=== PATIENT | female | born 2000 | race Caucasian/White ===

== ENCOUNTER 2024-02-04 12:03 | Emergency (ER) | payer MEDICAID ==
[~2024-02-04] VITALS: Ht 167.6 cm; Wt 82.0 kg
[2024-02-04 12:07] VITALS: O2SAT 100
[2024-02-04] MEDS ORDERED: P20 PO (12:47)
[2024-02-04] MEDS ORDERED: POLY15DR31 LEFTEYE (12:47)
[2024-02-04] MEDS: PREDNISONE 20MG TABLET PO ONE (13:01)
[2024-02-04 13:03] VITALS: BP 128/70; PULSE 60; RESP 20; TEMP 98.7
== END 2024-02-04 13:07 | disposition home or self-care (01) ==
LOC: ER 12:03
DX: G51.0 Bell's palsy (principal)
CPT/HCPCS: 99283; J7512